=== PATIENT | male | born 1955 | race Caucasian/White ===

== ENCOUNTER 2018-03-26 21:01 | Inpatient (IN) | payer MEDICAID ==
[2018-03-26 23:58] LABS: WHITE BLOOD COUNT 9.5 10^3/ul (4.8-10.8)
[2018-03-26 23:58] LABS: ABNORMAL IP MESSAGE 1; HEMATOCRIT 41.4 % (42.0-52.0); HEMOGLOBIN 13.7 g/dl (14.0-18.0); MEAN CORPUSCULAR HEMOGLOBIN 29.9 pg (29.0-33.0); MEAN CORPUSCULAR HGB CONC 33.1 g/dl (32.0-37.0); MEAN CORPUSCULAR VOLUME 90.4 fl (82.0-101.0); MEAN PLATELET VOLUME 10.3 fl (7.4-10.4); PLATELET COUNT 237 10^3/UL (140-415); POSITIVE DIFF @See below; RED BLOOD COUNT 4.58 10^6/ul (4.70-6.10); RED CELL DISTRIBUTION WIDTH 13.5 % (11.5-14.5)
[2018-03-27 00:02] LABS: ADD MAN DIFF? YES
[2018-03-27 00:04] LABS: ALANINE AMINOTRANSFERASE 39 IU/L (13-69); ALBUMIN 3.4 g/dl (3.3-4.9); ALBUMIN/GLOBULIN RATIO 0.94; ALKALINE PHOSPHATASE 83 IU/L (42-121); ANION GAP 16 (8-16); ASPARTATE AMINO TRANSFERASE 28 IU/L (15-46); BILIRUBIN,INDIRECT 0.3 mg/dl (0-1.1); BILIRUBIN,TOTAL 0.3 mg/dl (0.2-1.3); BLOOD UREA NITROGEN 20 mg/dl (7-20); CALCIUM 8.7 mg/dl (8.4-10.2); CARBON DIOXIDE 27 mmol/L (21-31); CHLORIDE 98 mmol/L (97-110); CREATININE 0.79 mg/dl (0.61-1.24); GLUCOSE 253 mg/dl (70-220); POTASSIUM 3.7 mmol/L (3.5-5.1); SODIUM 137 mmol/L (135-144)
[2018-03-27 00:15] LABS: INR 1.31; PROTIME 16.5 Sec (11.9-14.9); PT RATIO 1.3
[2018-03-27 00:16] LABS: PARTIAL THROMBOPLASTIN TIME 38.1 Sec (25.0-35.0)
[2018-03-27 00:19] LABS: LIPASE < 10 U/L (23-300); TROPONIN-I < 0.012 ng/ml (0.000-0.120)
[2018-03-27] MEDS: morphine 4 MG/ML VIAL IV (00:33)
[2018-03-27] MEDS: SOD CHLORIDE 0.9% 1,000 ML IV (00:33)
[2018-03-27] MEDS: ONDANSETRON 4 MG INJ IV ×2 (00:33→06:22)
[2018-03-27] MEDS: metroNIDAZOLE 500 MG/NS (PMX) 100 ML IVPB (01:34)
[2018-03-27 03:18] LABS: BAND NEUTROPHILS % (M) 22 % (0-4); LYMPHOCYTES # 1.1 10^3/ul (0.8-2.9); LYMPHOCYTES #M 1.1 10^3/ul (0.8-2.9); LYMPHOCYTES % (M) 12 % (15-51); MONOCYTES % (M) 11 % (0-11); MYELOCYTES % (M) 1 % (0-0); PROMYELOCYTES #M 0.2 10^3/ul (0-0); PROMYELOCYTES % (M) 3 % (0-0); SEGMENTED NEUTROPHILS (M) % 51 % (39-77)
[2018-03-27] MEDS: LEVOFLOXACIN 750MG/D5W (PMX) 150 ML IVPB (03:57)
[2018-03-27] MEDS ORDERED: DEXTROSE 50% 50 ML SYRINGE IV ×2 (04:30)
[2018-03-27] MEDS ORDERED: ALBUTEROL/IPRATROPIUM (NEB) 3 ML AMP HHN (04:30)
[2018-03-27] MEDS ORDERED: GLUCAGON 1 MG INJ IM (04:30)
[2018-03-27] MEDS ORDERED: GLUCOSE GEL 15 GRAM TUBE BUCCAL (04:30)
[2018-03-27] MEDS ORDERED: NACL 0.9% 3 ML SYG IV (04:30)
[2018-03-27] MEDS ORDERED: GLUCOSE GEL 15 GRAM TUBE PO ×2 (04:30)
[2018-03-27] MEDS: PIPER-TAZO 3.375 GM IV (PMX) 100 ML IVPB ×4 (05:33→23:33)
[2018-03-27] MEDS: INSULIN ASPART [NOVOLOG] 3 ML PEN SC ×5 (05:38→20:51)
[2018-03-27] MEDS: DEXTROSE 5%-0.45% NACL 1,000 ML IV ×2 (05:39→17:50)
[2018-03-27 05:42] LABS: ABNORMAL IP MESSAGE 1; HEMATOCRIT 31.1 % (42.0-52.0); HEMOGLOBIN 10.4 g/dl (14.0-18.0); MEAN CORPUSCULAR HEMOGLOBIN 29.9 pg (29.0-33.0); MEAN CORPUSCULAR HGB CONC 33.4 g/dl (32.0-37.0); MEAN CORPUSCULAR VOLUME 89.4 fl (82.0-101.0); MEAN PLATELET VOLUME 10.2 fl (7.4-10.4); PLATELET COUNT 201 10^3/UL (140-415); POSITIVE DIFF @See below; RED BLOOD COUNT 3.48 10^6/ul (4.70-6.10); RED CELL DISTRIBUTION WIDTH 13.4 % (11.5-14.5)
[2018-03-27 05:42] LABS: WHITE BLOOD COUNT 8.7 10^3/ul (4.8-10.8)
[2018-03-27] MEDS: ACETAMINOPHEN 1000MG/100ML IV 100 ML IVPB (06:22)
[2018-03-27 06:23] LABS: ADD MAN DIFF? YES
[2018-03-27 06:37] LABS: ALANINE AMINOTRANSFERASE 35 IU/L (13-69); ALBUMIN 2.4 g/dl (3.3-4.9); ALBUMIN/GLOBULIN RATIO 0.82; ALKALINE PHOSPHATASE 58 IU/L (42-121); ANION GAP 11 (8-16); ASPARTATE AMINO TRANSFERASE 18 IU/L (15-46); BILIRUBIN,INDIRECT 0.2 mg/dl (0-1.1); BILIRUBIN,TOTAL 0.2 mg/dl (0.2-1.3); BLOOD UREA NITROGEN 15 mg/dl (7-20); CALCIUM 7.5 mg/dl (8.4-10.2); CARBON DIOXIDE 25 mmol/L (21-31); CHLORIDE 105 mmol/L (97-110); CREATININE 0.58 mg/dl (0.61-1.24); GLUCOSE 200 mg/dl (70-220); MAGNESIUM 1.8 mg/dl (1.7-2.5); PHOSPHORUS 3.1 mg/dl (2.5-4.9); SODIUM 138 mmol/L (135-144); TOTAL PROTEIN 5.3 g/dl (6.1-8.1)
[2018-03-27 08:32] LABS: HEMOGLOBIN A1C 10.6 % (0-5.9)
[2018-03-27] MEDS: FAMOTIDINE 20 MG INJ IV ×2 (09:05→20:36)
[2018-03-27] MEDS: KETOROLAC 30 MG INJ IV (09:09)
[2018-03-27 10:32] LABS: BAND NEUTROPHILS #M 1.8 10^3/ul (0.0-0.6); BAND NEUTROPHILS % (M) 21 % (0-4); LYMPHOCYTES # 0.2 10^3/ul (0.8-2.9); LYMPHOCYTES #M 0.1 10^3/ul (0.8-2.9); LYMPHOCYTES % (M) 2 % (15-51); MONOCYTE # 1.3 10^3/ul (0.3-0.9); MONOCYTE #M 1.3 10^3/ul (0.3-0.9); MONOCYTES % (M) 15 % (0-11); SEG NEUT #M 5.6 10^3/ul (1.7-7.5); SEGMENTED NEUTROPHILS (M) % 62 % (39-77)
[2018-03-27] MEDS ORDERED: INSULIN ASPART [NOVOLOG] 3 ML PEN SC (12:15)
[2018-03-27] MEDS: POTASSIUM CHLORIDE 100 ML IVPB ×4 (14:54→20:35)
[2018-03-27] MEDS: morphine 2 MG INJ IV (17:50)
[2018-03-27] MEDS: INSULIN GLARGINE [LANtus] 3 ML PEN SC (20:52)
[2018-03-27] MEDS ORDERED: INSULIN GLARGINE [LANtus] 3 ML PEN SC (21:00)
[2018-03-28] MEDS: DEXTROSE 5%-0.45% NACL 1,000 ML IV ×3 (00:01→17:15)
[2018-03-28] MEDS: INSULIN ASPART [NOVOLOG] 3 ML PEN SC ×6 (01:04→20:45)
[2018-03-28] MEDS ORDERED: ACCU-CHEK XX (02:00)
[2018-03-28] MEDS: PIPER-TAZO 3.375 GM IV (PMX) 100 ML IVPB ×2 (05:33→12:40)
[2018-03-28 06:23] LABS: HEMATOCRIT 32.8 % (42.0-52.0); HEMOGLOBIN 10.9 g/dl (14.0-18.0); MEAN CORPUSCULAR HEMOGLOBIN 30.2 pg (29.0-33.0); MEAN CORPUSCULAR HGB CONC 33.2 g/dl (32.0-37.0); MEAN CORPUSCULAR VOLUME 90.9 fl (82.0-101.0); MEAN PLATELET VOLUME 10.4 fl (7.4-10.4); PLATELET COUNT 224 10^3/UL (140-415); POSITIVE DIFF @See below; RED BLOOD COUNT 3.61 10^6/ul (4.70-6.10); RED CELL DISTRIBUTION WIDTH 13.6 % (11.5-14.5)
[2018-03-28 06:23] LABS: WHITE BLOOD COUNT 10.9 10^3/ul (4.8-10.8)
[2018-03-28 06:31] LABS: ADD MAN DIFF? YES
[2018-03-28 07:08] LABS: ANION GAP 10 (8-16); BLOOD UREA NITROGEN 13 mg/dl (7-20); CALCIUM 8.1 mg/dl (8.4-10.2); CARBON DIOXIDE 26 mmol/L (21-31); CHLORIDE 108 mmol/L (97-110); CREATININE 0.74 mg/dl (0.61-1.24); GLUCOSE 142 mg/dl (70-220); MAGNESIUM 2.1 mg/dl (1.7-2.5); PHOSPHORUS 2.1 mg/dl (2.5-4.9); POTASSIUM 3.7 mmol/L (3.5-5.1); SODIUM 140 mmol/L (135-144)
[2018-03-28] MEDS: FAMOTIDINE 20 MG INJ IV ×2 (09:05→20:39)
[2018-03-28 10:10] LABS: ANISOCYTOSIS 1+ (0-0); BAND NEUTROPHILS #M 4.6 10^3/ul (0.0-0.6); BAND NEUTROPHILS % (M) 43 % (0-4); LYMPHOCYTES #M 0.5 10^3/ul (0.8-2.9); LYMPHOCYTES % (M) 5 % (15-51); METAMYELOCYTES #M 0.1 10^3/ul (0.0-0.0); METAMYELOCYTES %M 1 % (0-0); MONOCYTE #M 0.8 10^3/ul (0.3-0.9); MONOCYTES % (M) 8 % (0-11); PLATELET ESTIMATE NORMAL; POIKILOCYTOSIS 3+ (0-0); POLYCHROMASIA 3+ (0-0); PROMYELOCYTES #M 0.1 10^3/ul (0-0); PROMYELOCYTES % (M) 1 % (0-0); SEG NEUT #M 5.1 10^3/ul (1.6-7.5); SEGMENTED NEUTROPHILS (M) % 42 % (39-77); SMUDGE%M 6 % (0-0)
[2018-03-28] MEDS: NEUTRA-PHOS 250 MG PACKET PO (12:54)
[2018-03-28] MEDS ORDERED: morphine LIQ (10 MG/5 ML) CUP PO (13:00)
[2018-03-28] MEDS: metroNIDAZOLE 500 MG TAB PO ×2 (13:44→22:16)
[2018-03-28] MEDS: CIPROFLOXACIN 500 MG TAB PO (17:15)
[2018-03-28] MEDS: INSULIN GLARGINE [LANtus] 3 ML PEN SC (20:44)
[2018-03-29] MEDS: INSULIN ASPART [NOVOLOG] 3 ML PEN SC ×5 (00:41→17:28)
[2018-03-29] MEDS: DEXTROSE 5%-0.45% NACL 1,000 ML IV ×3 (03:30→13:54)
[2018-03-29] MEDS: metroNIDAZOLE 500 MG TAB PO ×3 (05:30→21:52)
[2018-03-29] MEDS: CIPROFLOXACIN 500 MG TAB PO ×2 (05:30→17:25)
[2018-03-29 06:09] LABS: HEMATOCRIT 30.7 % (42.0-52.0); HEMOGLOBIN 10.3 g/dl (14.0-18.0); MEAN CORPUSCULAR HEMOGLOBIN 30.2 pg (29.0-33.0); MEAN CORPUSCULAR HGB CONC 33.6 g/dl (32.0-37.0); MEAN PLATELET VOLUME 9.9 fl (7.4-10.4); PLATELET COUNT 229 10^3/UL (140-415); RED BLOOD COUNT 3.41 10^6/ul (4.70-6.10); RED CELL DISTRIBUTION WIDTH 13.7 % (11.5-14.5)
[2018-03-29 06:09] LABS: WHITE BLOOD COUNT 8.4 10^3/ul (4.8-10.8)
[2018-03-29 06:17] LABS: ADD MAN DIFF? YES
[2018-03-29 06:38] LABS: ANION GAP 9 (8-16); BLOOD UREA NITROGEN 6 mg/dl (7-20); CALCIUM 7.9 mg/dl (8.4-10.2); CARBON DIOXIDE 25 mmol/L (21-31); CHLORIDE 111 mmol/L (97-110); CREATININE 0.57 mg/dl (0.61-1.24); GLUCOSE 112 mg/dl (70-220); MAGNESIUM 1.9 mg/dl (1.7-2.5); POTASSIUM 3.1 mmol/L (3.5-5.1); SODIUM 142 mmol/L (135-144)
[2018-03-29 06:40] LABS: PROTIME 16.4 Sec (11.9-14.9); PT RATIO 1.3
[2018-03-29] MEDS: FAMOTIDINE 20 MG INJ IV (08:28)
[2018-03-29 10:23] LABS: BAND NEUTROPHILS #M 0.6 10^3/ul (0.0-0.6); BAND NEUTROPHILS % (M) 8 % (0-4); EOSINOPHILS # 0.1 10^3/ul (0.0-0.5); EOSINOPHILS % (M) 1 % (0.0-7.0); LYMPHOCYTES # 2.4 10^3/ul (0.8-2.9); LYMPHOCYTES #M 2.4 10^3/ul (0.8-2.9); LYMPHOCYTES % (M) 29 % (15-51); MONOCYTE # 0.8 10^3/ul (0.3-0.9); MONOCYTE #M 0.8 10^3/ul (0.3-0.9); MONOCYTES % (M) 10 % (0-11); SEG NEUT #M 4.4 10^3/ul (1.7-7.5); SEGMENTED NEUTROPHILS (M) % 52 % (39-77)
[2018-03-29 10:24] LABS: ANISOCYTOSIS 1+ (0-0); BURR CELLS FEW; HYPOCHROMASIA 1+ (0-0)
[2018-03-29] MEDS: POTASSIUM CHLORIDE (SR) 20 MEQ TAB PO (12:33)
[2018-03-29] MEDS: Insulin NOVOLOG SS MILD Algorithm (SS with meals and bedtime) SC ×2 (17:28→20:23)
[2018-03-29] MEDS ORDERED: INSULIN ASPART [NOVOLOG] 3 ML PEN SC (18:00)
[2018-03-29] MEDS: INSULIN GLARGINE [LANtus] 3 ML PEN SC (20:25)
[2018-03-30] MEDS: ACCUCHECK AT 2AM (Patients on SS coverage) XX (02:00)
[2018-03-30] MEDS: CIPROFLOXACIN 500 MG TAB PO ×2 (05:55→17:28)
[2018-03-30] MEDS: metroNIDAZOLE 500 MG TAB PO ×2 (05:55→15:00)
[2018-03-30 06:28] LABS: HEMATOCRIT 31.7 % (42.0-52.0); HEMOGLOBIN 10.6 g/dl (14.0-18.0); MEAN CORPUSCULAR HEMOGLOBIN 30.4 pg (29.0-33.0); MEAN CORPUSCULAR HGB CONC 33.4 g/dl (32.0-37.0); MEAN CORPUSCULAR VOLUME 90.8 fl (82.0-101.0); MEAN PLATELET VOLUME 9.7 fl (7.4-10.4); PLATELET COUNT 281 10^3/UL (140-415); POSITIVE DIFF @See below; RED BLOOD COUNT 3.49 10^6/ul (4.70-6.10); RED CELL DISTRIBUTION WIDTH 13.9 % (11.5-14.5)
[2018-03-30 06:28] LABS: WHITE BLOOD COUNT 7.8 10^3/ul (4.8-10.8)
[2018-03-30 06:43] LABS: ADD MAN DIFF? YES
[2018-03-30 07:01] LABS: ANION GAP 10 (8-16); BLOOD UREA NITROGEN 4 mg/dl (7-20); CARBON DIOXIDE 29 mmol/L (21-31); CHLORIDE 111 mmol/L (97-110); GLUCOSE 118 mg/dl (70-220); PHOSPHORUS 3.6 mg/dl (2.5-4.9); POTASSIUM 3.3 mmol/L (3.5-5.1); SODIUM 147 mmol/L (135-144)
[2018-03-30] MEDS: Insulin NOVOLOG SS MILD Algorithm (SS with meals and bedtime) SC ×3 (08:00→17:26)
[2018-03-30] MEDS: INSULIN ASPART [NOVOLOG] 3 ML PEN SC ×3 (08:06→17:26)
[2018-03-30 13:20] LABS: ANISOCYTOSIS 1+ (0-0); BAND NEUTROPHILS #M 1.5 10^3/ul (0.0-0.6); BAND NEUTROPHILS % (M) 20 % (0-4); GIANT THROMBO% (M) 2 % (0-0); HYPOCHROMASIA 1+ (0-0); LYMPHOCYTES % (M) 14 % (15-51); MONOCYTE #M 0.3 10^3/ul (0.3-0.9); MONOCYTES % (M) 4 % (0-11); MYELOCYTES % (M) 1 % (0-0); PLATELET ESTIMATE NORMAL; POLYCHROMASIA 1+ (0-0); SEG NEUT #M 4.8 10^3/ul (1.6-7.5); SEGMENTED NEUTROPHILS (M) % 60 % (39-77); SMUDGE%M 4 % (0-0)
[2018-03-30] MEDS: POTASSIUM CHLORIDE (SR) 20 MEQ TAB PO (15:00)
== END 2018-03-30 18:05 | disposition home or self-care (01) | DRG 871 ==
LOC: MS2 03-28 08:30 → E/R 21:01 → MS2 03-27 01:37
PROVIDERS: Internal Medicine
DX: A41.9 Sepsis, unspecified organism (principal); J18.9 Pneumonia, unspecified organism; K52.9 Noninfective gastroenteritis and colitis, unspecified; N40.0 Benign prostatic hyperplasia without lower urinary tract symptoms; E10.9 Type 1 diabetes mellitus without complications
CPT/HCPCS: 36415; 71045; 74176; 80048; 80053; 82962; 83036; 83690; 83735; 84100; 84484; 85025; 85610; 85730; 87075; 93005; 96374; 96375; 99285-25